=== PATIENT | male | born 2000 | race Caucasian/White ===

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

== ENCOUNTER 2018-08-10 08:11 | Outpatient (CLI) ==
[2016-10-16 20:58] VITALS: BMI 20.5
== END 2018-08-10 08:12 | disposition home or self-care (01) ==
LOC: RHC-LAB 08:11 → FCC-LAB 08:12
PROVIDERS: ATTEND Family Medicine
DX: E03.9 Hypothyroidism, unspecified (principal)
CPT/HCPCS: 36415; 84443